=== PATIENT | female | born 1975 | race Caucasian/White ===

== ENCOUNTER → 2018-04-05 14:27 | Outpatient (POV) | payer BC, MEDICAID, SELFPAY | PROVIDERS: Visit Provider Dermatology | DX: Z00.00 Encounter for general adult medical examination without abnormal findings (principal) ==

== ENCOUNTER → 2018-09-20 10:47 | Outpatient (CLI) | payer BC, MEDICAID, SELFPAY ==
--- NOTE | 2018-09-20 10:51 | US_ITS ---
US transvaginal HISTORY: ITS.REASON: DUB ORDERING PHYSICIAN: Bob Blum MD PATIENT AGE: 43 years Comparison: None FINDINGS: The empty uterus measures 10.5 x 5.6 x 5.6 cm. Endometrial stripe is 1.3 cm. There is blood flow to both ovaries with a few small right ovarian follicles and very small amount of fluid around the right ovary. IMPRESSION: Some prominence of the endometrial stripe could be related to the menstrual cycle. Very small amount of free fluid around the right ovary. No other acute process.
== END ==
PROVIDERS: PCP Internal Medicine; Visit Provider Obstetrics & Gynecology
DX: N93.8 Other specified abnormal uterine and vaginal bleeding (principal)
CPT/HCPCS: 76830

== ENCOUNTER → 2018-10-19 16:14 | Outpatient (CLI) | payer BC, MEDICAID, SELFPAY ==
--- NOTE | 2018-10-19 16:25 | MM_ITS ---
MM Dig screening mamm BI w/CAD CAD Screening COMPARISON: Digital mammograms with CAD 10/14/2016 INDICATION: There is no personal or family history of breast cancer. There has been previous breast reduction surgery bilaterally. TECHNIQUE: Standard CC and MLO images were obtained. R2 CAD reviewed. FINDINGS: Diffuse heterogenic fibroglandular densities are seen in both breasts. Findings are most prominent in the upper outer quadrants. There is a stable somewhat irregular density inner quadrant left breast. There is a benign-appearing calcification right breast. There is no suspicious lesion and there are no suspicious microcalcifications. IMPRESSION: Moderate diffuse breast density with no suspicious lesion seen BI-RADS Category: 2 Benign Finding(s) RECOMMENDED FOLLOW-UP: 1YR - 1 YEAR FOLLOW-UP (A letter has been sent to the patient regarding results of the study.)
== END ==
PROVIDERS: PCP Internal Medicine; Visit Provider Obstetrics & Gynecology
DX: Z12.31 Encounter for screening mammogram for malignant neoplasm of breast (principal)
CPT/HCPCS: 77067

== ENCOUNTER 2020-12-04 18:15 | Emergency (ER) | payer BC, MEDICAID, SELFPAY ==
[2020-12-04 19:52] VITALS: BP 123/84; PULSE 66; RESP 19; TEMP 37; O2SAT 98; BMI 30.7
--- NOTE | 2020-12-04 19:55 | HMH.EDUTC ---
[facility] Disposition Clinical Impression: Muscle spasm Disposition: Home, Self-Care Condition on Discharge: Good Instructions: DI for Muscle Spasm Additional Instructions: *Ibuprofen jennifer 6 hours with meal as needed for pain/inflammation *Remember you had a Toradol shot in the clinic today, which is similar to Motrin *Not additional anti-inflammatory like motrin, aleve, advil with the above amount of ibuprofen. You can still take Tylenol every 4 hours as needed if you need something else for pain *Ice 20 minutes every 2 hours for the first 48 hours after the initial injury followed by moist heat every 20 minutes 3-4 times a day to affected area *Muscle relaxer every 8 hours as needed for muscle spasms but remember, it WILL cause drowsiness You cannot take it and drive, operate machinery or care for small children. *Keep this area active, no movement leads to more stiffness, However take it easy and avoid heavy lifting pushing or pulling *Follow up with you family doctor if no improvement for further treatment Prescriptions: Etodolac 200 mg PO Q8HP PRN #15 cap PRN Reason: Moderate Pain Transmission Status: Pending to [facility] #[id number] methocarbamoL [Methocarbamol 500mg Tablet] 500 mg PO BID PRN #12 tab PRN Reason: Muscle Spasm Transmission Status: Pending to [facility] #[id number] Referrals: Ras Bowen [Primary Care Provider] - As needed Medical Decision Making - Carter Inquiry Pt receiving controlled substance: No Carter was queried for this patient: No Vital Signs: 12/04/20 19:52 Temperature 98.6 F Temperature Source Oral Pulse Rate [Right] 66 Respiratory Rate 19 Blood Pressure [Right Arm] 123/84 Blood Pressure Mean [Right Arm] 97 02 Sat by Pulse Oximetry 98 Orders (Tests/Meds): ED MEDICATIONS Discontinued Medications Generic Name Dose Route Start Last Admin Trade Name Freq PRN Reason Stop Dose Admin Ketorolac Tromethamine 60 mg 12/04/20 20:05 12/04/20 20:15 Ketorolac 60mg/2ml Vial IM 12/04/20 20:06 60 mg ONCE ONE Administration Methylprednisolone Sodium Succinate 125 mg 12/04/20 20:05 12/04/20 20:15 Methylprednisolone Sod Succ 125mg Vial IM 12/04/20 20:06 125 mg ONCE ONE Administration Medical Decision Narrative: Medication discussed with pharmacy Discussed with patient about neck and shoulder pain sending to ED to [facility] cardiac Patient states that she is not having CP and declined transfer Patient states that she is not having any chest pain and pain in neck and shoulder area is exacerbated with movement and similar to what she has had in the past and didnt start until she was working in the yard and thinks she over did it Patient advised she would return if no improvement or any worsening of symptoms patient educated on risks and still declined Patient reports pain much better after injection and no longer having headache States that she feels like she can move her arm better and muscle spasm not as intense [facility] HPI - General Stated complaint: Pain Left shoulder/neck Time Seen by Provider: 12/04/20 19:55 Description of Symptoms (Recalled from Triage Doc. by RN): PAIN IN NECK WITH NAUSEA & DIZZINESS, HEADACHE X3 DAYS HEENT Symptoms (Recalled from RN notes): No Resp Symptoms (Recalled from RN notes): No Skin Symptoms (Recalled from RN notes): No MS Symptoms (Recalled from RN notes): Yes Functional Status (Recalled from RN notes): WNL - History of Present Illness Provider Complaint: Patient states that she has a history of muscle spasms in her neck and shoulder area States that she was working out in the yard the other day and she thinks she may have over done it State that she has been having muscles spasms in the left side of her neck and feels like it is pulling back of her shoulder blade area State that it is making her have a headache and feel nauseous at times - Related Data Home Medications Medication Instructions Recorded Confirmed acyc
[2020-12-04 20:51] VITALS: BP 123/84; PULSE 66; RESP 19; TEMP 37
== END 2020-12-04 20:52 | disposition home or self-care (01) ==
PROVIDERS: Emergency Provider Nurse Practitioner; PCP Internal Medicine
DX: M62.838 Other muscle spasm (principal); M54.2 Cervicalgia; R51.9 Headache, unspecified; F33.1 Major depressive disorder, recurrent, moderate; E11.9 Type 2 diabetes mellitus without complications
CPT/HCPCS: 96372; 99202; G0463

== ENCOUNTER → 2021-04-04 12:07 | Outpatient (CLI) | payer BC, MEDICAID, SELFPAY ==
[2021-04-04 12:39] LABS: Basophils % 0.7 % (0.1-2.0); Eosinophils # 0.1 K/mm3 (0.0-0.4); Eosinophils % 0.9 % (0.1-12.0); Hematocrit 45.2 % (37.0-47.0); Hemoglobin 14.6 g/dL (12.2-16.2); Lymphocytes # 1.5 K/mm3 (0.7-4.5); Lymphocytes % 27.7 % (10-50); Mean Corpuscular HGB Conc 32.3 g/dL (31.8-35.4); Mean Corpuscular Hemoglobin 29.7 pg (27.0-31.2); Mean Platelet Volume 8.7 fl (7.4-10.4); Monocytes # 0.3 K/mm3 (0.1-1.0); Monocytes % 5.3 % (1.7-9.3); Neutrophils # 3.5 K/mm3 (1.8-7.8); Neutrophils % 65.5 % (37.0-80.0); Platelet Count 295 K/mm3 (142-424); Red Blood Count 4.91 M/mm3 (4.20-5.40); Red Cell Distribution Width 13.4 % (11.5-17.5); White Blood Count 5.3 K/mm3 (4.8-10.8)
[2021-04-04 13:42] LABS: Alanine Aminotransferase 20 U/L (12-78); Albumin Level 4.7 g/dl (3.5-5.0); Albumin/Globulin Ratio 1.6 (1.1-1.8); Alkaline Phosphatase 88 U/L (38-126); Anion Gap 13.2 mEq/L (5-15); Aspartate Amino Transferase 22 U/L (14-36); Bilirubin,Total 0.4 mg/dl (0.2-1.3); Blood Urea Nitrogen 21 mg/dl (7-17); Calcium 10.3 mg/dl (8.4-10.2); Carbon Dioxide 24 mmol/L (22.0-30.0); Chloride 105 mmol/L (98-107); Cholesterol 206 mg/dl (140-200); Estimated Glomerular Filt Rate 78 ml/min (>60); GFR (African American) 94 ML/MIN (>60); Globulin 2.9 g/dL (1.3-3.2); Glucose 98 mg/dl (74-100); HDL Cholesterol 51 mg/dl (40-60); Potassium 4.2 mmoL/L (3.5-5.1); Sodium 138 mmol/L (136-145); Total Protein,Serum 7.6 g/dl (6.3-8.2); Triglycerides 58 mg/dl (30-150); VLDL Cholesterol 12 mg/dL (0-40)
[2021-04-04 13:53] LABS: Direct LDL Cholesterol 135.32 mg/dL (100-129)
[2021-04-04 14:36] LABS: Hemoglobin A1C 5.3 % (4.0-6.0)
== END ==
PROVIDERS: PCP Internal Medicine; Visit Provider Internal Medicine
DX: I10 Essential (primary) hypertension (principal); E78.5 Hyperlipidemia, unspecified; D64.9 Anemia, unspecified; Z83.3 Family history of diabetes mellitus
CPT/HCPCS: 36415; 80053; 80061; 83036; 85025

== ENCOUNTER → 2021-04-11 17:07 | Outpatient (CLI) | payer BC, MEDICAID, SELFPAY | PROVIDERS: Visit Provider Nurse Practitioner | DX: Z20.822 Contact with and (suspected) exposure to COVID-19 (principal) | CPT/HCPCS: C9803; U0003; U0005 ==

== ENCOUNTER 2022-01-04 20:14 | Emergency (ER) | payer BC, MEDICAID, SELFPAY ==
[2022-01-04] VITALS (7 sets, daily range): BP systolic 156–182; BP diastolic 100–113; PULSE 76–98; RESP 22; TEMP 36.4; O2SAT 96–100; BMI 28.1
--- NOTE | 2022-01-04 20:32 | XR_ITS ---
PROCEDURE INFORMATION: Exam: XR Chest Exam date and time: 01/04/2022 8:53 PM Age: 46 years old Clinical indication: Injury or trauma; Fall; Blunt trauma (contusions or hematomas) TECHNIQUE: Imaging protocol: Radiologic exam of the chest. Views: 4 or more views. COMPARISON: CT CERVICAL SPINE WO CON 01/04/2022 8:49 PM FINDINGS: Lungs: Unremarkable. No consolidation. Pleural spaces: Unremarkable. No pleural effusion. No pneumothorax. Heart/Mediastinum: Unremarkable. No cardiomegaly. Bones/joints: Unremarkable. IMPRESSION: No acute findings.
--- NOTE | 2022-01-04 20:32 | XR_ITS ---
PROCEDURE INFORMATION: Exam: XR Pelvis Exam date and time: 01/04/2022 8:52 PM Age: 46 years old Clinical indication: Injury or trauma; Fall; Blunt trauma (contusions or hematomas); Bilateral; Pelvic region TECHNIQUE: Imaging protocol: Radiologic exam of the pelvis. Views: 1 or 2 view. COMPARISON: ABDPELW/O CT ABD PELVIS W/O CONTRAST 08/03/2016 12:29 PM FINDINGS: Bones/joints: Unremarkable. No acute fracture. Soft tissues: Unremarkable. IMPRESSION: No acute findings.
--- NOTE | 2022-01-04 20:32 | CT_ITS ---
PROCEDURE INFORMATION: Exam: CT Cervical Spine Without Contrast Exam date and time: 01/04/2022 8:49 PM Age: 46 years old Clinical indication: Injury or trauma; Fall; Blunt trauma; Additional info: Fall, hit posterior head TECHNIQUE: Imaging protocol: Computed tomography of the cervical spine without contrast. Radiation optimization: All CT scans at this facility use at least one of these dose optimization techniques: automated exposure control; mA and/or kV adjustment per patient size (includes targeted exams where dose is matched to clinical indication); or iterative reconstruction. 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 Straightening of the curvature of the cervical spine is likely positional. Moderate left neural foraminal stenosis at C3-C4. Lungs: Lung apices are normal. Mediastinal space: Stigmata of old granulomatous disease. Soft tissues: Unremarkable. IMPRESSION: No acute fracture or malalignment of the cervical spine.
--- NOTE | 2022-01-04 20:32 | CT_ITS ---
PROCEDURE INFORMATION: Exam: CT Head Without Contrast Exam date and time: 01/04/2022 8:47 PM Age: 46 years old Clinical indication: Injury or trauma; Fall; Additional info: Fall, hit posterior head TECHNIQUE: Imaging protocol: Computed tomography of the head without contrast. Radiation optimization: All CT scans at this facility use at least one of these dose optimization techniques: automated exposure control; mA and/or kV adjustment per patient size (includes targeted exams where dose is matched to clinical indication); or iterative reconstruction. COMPARISON: CR XR CERVICAL SPINE 3V 11/03/2018 4:19 PM FINDINGS: Brain: There is a probable small amount of extra-axial blood overlying the right frontal and temporal convexity best seen on coronal and sagittal images. Possible right frontal lobe contusion on image 29 series 3. Cerebral ventricles: No ventriculomegaly. Paranasal sinuses: Visualized sinuses are unremarkable. No fluid levels. Mastoid air cells: Visualized mastoid air cells are well aerated. Bones/joints: Nondisplaced left-sided occipital bone fracture nearly extending to the left side of the foramen magnum. Soft tissues: Posterior scalp hematoma. IMPRESSION: 1. There is a probable small amount of extra-axial blood overlying the right frontal and temporal convexity best seen on coronal and sagittal images. Possible right frontal lobe contusion on image 29 series 3. This appearance could be artifact, however, given the presence of a posterior skull fracture, 4 hour follow-up head CT is recommended. 2. Nondisplaced left-sided occipital bone fracture nearly extending to the left side of the foramen magnum. No underlying extra-axial hematoma.
--- NOTE | 2022-01-04 20:49 | PC.NURSE ---
Pt gone to RAD for Xray and CT scans
--- NOTE | 2022-01-04 20:57 | HMH.EDFALL ---
Discharge Plan Disposition Patient Disposition: Home, Self-Care Chief Complaint: Fall Prescriptions Prescriptions: No Action duloxetine 30 mg capsule,delayed release(DR/EC) 30 mg PO DAILY duloxetine 60 mg capsule,delayed release(DR/EC) PO Label Comments: TAKE 1 CAPSULE BY MOUTH EVERY MORNING FOR FIBROMYALGIA hydrochlorothiazide 25 mg tablet 25 mg PO DAILY Label Comments: TK 1 T PO MORNING losartan 50 mg tablet 50 mg PO DAILY Label Comments: TK 1 T PO QD acyclovir 400 mg tablet 400 mg PO DAILY Label Comments: take 1 tablet by mouth three times a day for 7 days Lo Loestrin Fe 1 mg-10 mcg (24)/10 mcg (2) tablet 1 tab PO DAILY Qty: 140 7RF methocarbamol 500 MG tablet 500 mg PO BID PRN (Reason: Muscle Spasm) Qty: 12 0RF etodolac 200 MG capsule 200 mg PO Q8HP PRN (Reason: Moderate Pain) Qty: 15 0RF Referrals Follow up/Referrals: Ras Bowen MD [Primary Care Provider] - See instructions Clinical Impressions Clinical Impression: Contusion of head, Concussion without loss of consciousness Instructions Patient Instructions: DI for Concussion Discharge ED Provider: Umang Layton Fall HPI General Chief Complaint: Fall Stated Complaint: AO 01/04 FELL HIT HEAD, VOMITTING Time Seen by Provider: 01/04/22 20:57 Mode of Arrival: Family Vehicle Source of Information: Patient, Parent(s) and Medical Record Limitations: No Limitations Description of Symptoms (Recalled from ER Triage Doc. by RN): Pt fell down 4 steps and hit the back of her head on conrete. Brusing, abraision and swelling noted to posterior head. Denies any loc. Pt does c/o nausea and dry heaving. History of Present Illness HPI Narrative: fell down steps and hit back of head no loc but feels confused with nausea - has hx of skull fx as child - no sz complaint: fall Onset (ago): hour(s) Fall from: down stairs (#) Place fall occurred: home Loss of consciousness: none Prolonged down time: no Symptoms prior to fall: none Context: tripped/slipped Location of injury: head Severity: moderate Associated symptoms (after fall): confusion and other (nausea ) Related Data Home Medications Medication Instructions Recorded Confirmed acyclovir 400 mg tablet 400 mg PO DAILY 10/26/19 duloxetine 30 mg capsule,delayed 30 mg PO DAILY 10/26/19 release duloxetine 60 mg capsule,delayed mg PO 10/26/19 release hydrochlorothiazide 25 mg tablet 25 mg PO DAILY 10/26/19 losartan 50 mg tablet 50 mg PO DAILY 10/26/19 Previous Rx's Medication Instructions Recorded norethindrone 1 mg-ethinyl 1 tab PO DAILY #140 tabs 12/05/19 estradiol 10 mcg (24)-iron 10 mcg(2) tablet (Lo Loestrin Fe) etodolac 200 mg capsule 200 mg PO Q8HP PRN Moderate Pain 12/04/20 #15 caps methocarbamol 500 mg tablet 500 mg PO BID PRN Muscle Spasm #12 12/04/20 tabs Allergies Allergy/AdvReac Type Severity Reaction Status Date / Time codeine [CODEINE] Allergy Mild Verified 12/04/20 19:55 latex [LATEX] Allergy Unknown Verified 12/04/20 19:55 PFSH PFSH Social History Smoking Status: Current every day smoker alcohol intake: never substance use type: denies use current occupational status: employed and unemployed Travel in the last 8 weeks: None household members: family housing: house number of children: 3 ROS Obtained: Yes All systems reviewed & no additional complaints except as documented Physical Exam General General appearance: alert and in no apparent distress Head Head exam: normocephalic and other (occipital hematoma ) Eye Eye exam: Present PERRL and EOMI; Absent nystagmus ENT ENT exam: Present normal oropharynx Neck Neck exam: Present full ROM and trachea midline Respiratory Respiratory exam: Present normal lung sounds bilaterally; Absent respiratory distress Cardiovascular Cardiovascular exam: Present regular rate Abdominal Exam Abdominal exam: Present
--- NOTE | 2022-01-04 21:05 | PC.NURSE ---
Pt returned to room from RAD
--- NOTE | 2022-01-04 21:15 | PC.NURSE ---
Dr. Layton @ bedside
--- NOTE | 2022-01-04 21:30 | PC.NURSE ---
Dr. Layton s/w SERAFINAD
--- NOTE | 2022-01-05 00:47 | CT_ITS ---
PROCEDURE INFORMATION: Exam: CT Head Without Contrast Exam date and time: 01/05/2022 1:01 AM Age: 46 years old Clinical indication: Injury or trauma; Fall; Blunt trauma (contusions or hematomas); Without loss of consciousness; Additional info: Repat [address] TECHNIQUE: Imaging protocol: Computed tomography of the head without contrast. Radiation optimization: All CT scans at this facility use at least one of these dose optimization techniques: automated exposure control; mA and/or kV adjustment per patient size (includes targeted exams where dose is matched to clinical indication); or iterative reconstruction. COMPARISON: CT HEAD/BRAIN WO CON 01/04/2022 8:47 PM FINDINGS: Brain: Normal. No hemorrhage. Unremarkable white matter. No mass effect. Cerebral ventricles: No ventriculomegaly. Paranasal sinuses: Visualized sinuses are unremarkable. No fluid levels. Mastoid air cells: Visualized mastoid air cells are well aerated. Bones/joints: Unremarkable. No acute fracture. Soft tissues: Scalp hematoma posteriorly. IMPRESSION: No acute intracranial abnormality.
--- NOTE | 2022-01-05 01:05 | PC.NURSE ---
PATIENT TRANSPORTED VIA STRETCHER TO RADIOLOGY.
[2022-01-05 01:43] VITALS: BP 110/70; PULSE 81; RESP 20; TEMP 36.8; O2SAT 98
== END 2022-01-05 02:21 | disposition home or self-care (01) ==
PROVIDERS: Emergency Provider Emergency Medicine; PCP Internal Medicine
DX: S06.0X0A Concussion without loss of consciousness, initial encounter (principal); W10.9XXA Fall (on) (from) unspecified stairs and steps, initial encounter
CPT/HCPCS: 70450; 71045; 72125; 72170; 99285

== ENCOUNTER → 2022-01-09 15:52 | Outpatient (CLI) | payer BC, MEDICAID, SELFPAY ==
--- NOTE | 2022-01-09 16:01 | CT_ITS ---
FINAL REPORT CLINICAL HISTORY: HEAD TRAUMA, light sensitivity, dizziness COMPARISON: 01/05/2022 FINDINGS: Axial images of the head were obtained without contrast. Coronal reformatted images were also obtained.This study was performed with techniques to keep radiation doses as low as reasonably achievable (ALARA). Individualized dose reduction techniques using automated exposure control or adjustment of mA and/or kV according to the patient's size were employed. There is no evidence of intracranial hemorrhage or mass. The ventricular size is within normal limits. There is no evidence of shift of the midline structures. No abnormal extra axial fluid collection is identified. No skull abnormality is seen on the bone window images. IMPRESSION: No acute intracranial abnormality. Reviewed, Interpreted and Dictated by Deangelo Mcdaniel III, MD Transcribed by Patel Cohen Authenticated and [facility]
== END ==
PROVIDERS: PCP Internal Medicine; Visit Provider Internal Medicine
DX: S09.8XXA Other specified injuries of head, initial encounter (principal); W10.8XXA Fall (on) (from) other stairs and steps, initial encounter
CPT/HCPCS: 70450

== ENCOUNTER 2022-01-21 14:53 | Emergency (ER) | payer BC, MEDICAID, SELFPAY ==
[2022-01-21] VITALS (8 sets, daily range): BP systolic 139–178; BP diastolic 92–123; PULSE 78–100; RESP 14–19; TEMP 36.8; O2SAT 97–99; BMI 27.3
--- NOTE | 2022-01-21 14:47 | ECG_ITS ---
APPROVED REPORT Exam: Resting ECG HR:90 bpm ECG Measurements Heart Rate 90 AXES MA 145 P 45 QRSd 87 QRS 16 QT 354 T 24 QTc 402 Conclusion SINUS RHYTHM NORMAL ECG UNCONFIRMED REPORT Electronically signed by : Brad Tavares MD 01/22/2022 21:08:07
--- NOTE | 2022-01-21 14:55 | CT_ITS ---
FINAL REPORT CLINICAL HISTORY: head injury, pain COMPARISON: January 09, 2022 FINDINGS: Axial images of the head were obtained without contrast. Coronal reformatted images were also obtained.This study was performed with techniques to keep radiation doses as low as reasonably achievable (ALARA). Individualized dose reduction techniques using automated exposure control or adjustment of mA and/or kV according to the patient's size were employed. There is no evidence of intracranial hemorrhage or mass. The ventricular size is within normal limits. There is no evidence of shift of the midline structures. No abnormal extra axial fluid collection is identified. No skull abnormality is seen on the bone window images. IMPRESSION: No acute intracranial abnormality. Reviewed, Interpreted and Dictated by Deangelo Mcdaniel III, MD Transcribed by Patel Cohen Authenticated and [facility]
--- NOTE | 2022-01-21 14:55 | XR_ITS ---
FINAL REPORT CLINICAL HISTORY: chest pain FINDINGS: The heart size is normal. The mediastinum is within normal limits. There is no acute cardiopulmonary process. There is no pleural effusion. There is no pneumothorax. The bony thorax is intact. IMPRESSION: No acute cardiopulmonary process. Reviewed, Interpreted and Dictated by Deangelo Mcdaniel III, MD Transcribed by Patel Cohen Authenticated and [facility]
--- NOTE | 2022-01-21 14:56 | HMH.EDGENADL ---
Discharge Plan Disposition Patient Disposition: Home, Self-Care Condition: Fair Prescriptions Prescriptions: New ibuprofen 600 mg tablet 600 mg PO TID PRN (Reason: pain) Qty: 20 0RF ondansetron 4 mg tablet,disintegrating 4 mg PO Q6H PRN (Reason: nausea and vomiting) Qty: 10 0RF No Action duloxetine 30 mg capsule,delayed release(DR/EC) 30 mg PO DAILY duloxetine 60 mg capsule,delayed release(DR/EC) PO Label Comments: TAKE 1 CAPSULE BY MOUTH EVERY MORNING FOR FIBROMYALGIA hydrochlorothiazide 25 mg tablet 25 mg PO DAILY Label Comments: TK 1 T PO MORNING losartan 50 mg tablet 50 mg PO DAILY Label Comments: TK 1 T PO QD acyclovir 400 mg tablet 400 mg PO DAILY Label Comments: take 1 tablet by mouth three times a day for 7 days Lo Loestrin Fe 1 mg-10 mcg (24)/10 mcg (2) tablet 1 tab PO DAILY Qty: 140 7RF methocarbamol 500 MG tablet 500 mg PO BID PRN (Reason: Muscle Spasm) Qty: 12 0RF etodolac 200 MG capsule 200 mg PO Q8HP PRN (Reason: Moderate Pain) Qty: 15 0RF Activity Restrictions/Add. Instructions Additional Instructions/Restrictions: You have been evaluated for chest pain, elevated blood pressure, headache. This is likely due to postconcussive syndrome. Please continue to monitor your symptoms closely. Continue taking blood pressure medication. Take ibuprofen as needed. Follow-up with your primary care doctor in 1 to 2 days for symptom recheck. Return to the emergency department at once for any new or worsening symptoms, headache, vision changes, dizziness, chest pain, difficulty breathing or any other concern Clinical Impressions Clinical Impression: Post concussion syndrome, Headache, tension-type, Elevated blood pressure reading Instructions Patient Instructions: DI for Concussion, DI for Postconcussion Syndrome Discharge ED Provider: Ramandeep Price Adult HPI General Chief complaint: Chest Pain Stated complaint: CHEST PAIN Time Seen by Provider: 01/21/22 14:55 History of Present Illness HPI narrative: 46-year-old female presenting to the emergency department with chest pain. Pain started 2 nights ago before bedtime. She had a tight, aching pain that was located in the front of her chest. No radiation. She has had it intermittently since then. No particular association with activity or exertion. No nausea, diaphoresis, shortness of breath. She has never had pain like this before. She has a headache that is constant and throbbing, worse on the right side. She sustained a concussion 3 weeks ago after falling off of her deck. She was evaluated in the ER where she had a head CT. No vision changes. No nausea, vomiting, neck pain. Her blood pressure has been elevated around 150 systolic. She is taking her blood pressure medicine as prescribed. Related Data Home Medications Medication Instructions Recorded Confirmed acyclovir 400 mg tablet 400 mg PO DAILY 10/26/19 duloxetine 30 mg capsule,delayed 30 mg PO DAILY 10/26/19 release duloxetine 60 mg capsule,delayed mg PO 10/26/19 release hydrochlorothiazide 25 mg tablet 25 mg PO DAILY 10/26/19 losartan 50 mg tablet 50 mg PO DAILY 10/26/19 Previous Rx's Medication Instructions Recorded norethindrone 1 mg-ethinyl 1 tab PO DAILY #140 tabs 12/05/19 estradiol 10 mcg (24)-iron 10 mcg(2) tablet (Lo Loestrin Fe) etodolac 200 mg capsule 200 mg PO Q8HP PRN Moderate Pain 12/04/20 #15 caps methocarbamol 500 mg tablet 500 mg PO BID PRN Muscle Spasm #12 12/04/20 tabs ibuprofen 600 mg tablet 600 mg PO TID PRN pain #20 tabs 01/21/22 ondansetron 4 mg disintegrating 4 mg PO Q6H PRN nausea and 01/21/22 tablet vomiting #10 tabs Allergies Allergy/AdvReac Type Severity Reaction Status Date / Time codeine [CODEINE] Allergy Mild Verified 12/04/20 19:55 latex [LATEX] Allergy Unknown Verified 12/04/20 19:55 [facility] Social History Smoking St
--- NOTE | 2022-01-21 15:00 | PC.NURSE ---
1450 ED MD AT BEDSIDE
[2022-01-21 15:05] LABS: Basophils # 0.1 K/mm3 (0-0.2); Basophils % 1.4 % (0.1-2.0); Eosinophils # 0.1 K/mm3 (0.0-0.4); Eosinophils % 2.5 % (0.1-12.0); Hematocrit 41.8 % (37.0-47.0); Hemoglobin 14.2 g/dL (12.2-16.2); Lymphocytes # 1.9 K/mm3 (0.7-4.5); Lymphocytes % 34.2 % (10-50); Mean Corpuscular Hemoglobin 30.2 pg (27.0-31.2); Mean Corpuscular Volume 88.7 fl (81-99); Monocytes # 0.3 K/mm3 (0.1-1.0); Neutrophils % 55.8 % (37.0-80.0); Platelet Count 288 K/mm3 (142-424); Red Blood Count 4.71 M/mm3 (4.20-5.40); Red Cell Distribution Width 13.8 % (11.5-17.5); White Blood Count 5.4 K/mm3 (4.8-10.8)
--- NOTE | 2022-01-21 15:05 | PC.NURSE ---
PT TO CT
[2022-01-21 15:28] LABS: Chloride 104 mmol/L (98-107); Potassium 3.6 mmoL/L (3.5-5.1); Sodium 140 mmol/L (136-145)
[2022-01-21 15:31] LABS: Alanine Aminotransferase 54 U/L (12-78); Albumin Level 4.4 g/dl (3.5-5.0); Albumin/Globulin Ratio 1.4 (1.1-1.8); Alkaline Phosphatase 123 U/L (38-126); Anion Gap 11.6 mEq/L (5-15); Aspartate Amino Transferase 52 U/L (14-36); Bilirubin,Total 0.5 mg/dl (0.2-1.3); Blood Urea Nitrogen 15 mg/dl (7-17); Carbon Dioxide 28 mmol/L (22.0-30.0); Creatinine Clearance Estimated 133 mL/min (50-200); Estimated Glomerular Filt Rate 90 ml/min (>60); GFR (African American) 109 ML/MIN (>60); Globulin 3.2 g/dL (1.3-3.2); Total Protein,Serum 7.6 g/dl (6.3-8.2)
[2022-01-21 15:32] LABS: Calcium 9.4 mg/dl (8.4-10.2); Glucose 96 mg/dl (74-100)
[2022-01-21 15:53] LABS: Troponin I < 0.01 ng/ml (0.00-0.034)
--- NOTE | 2022-01-21 16:18 | PC.NURSE ---
ROUNDED ON PT AT THIS TIME, PT SLEEPING UPON ENTERING ROOM, AWAKENS EASILY, REPORTS FEELING BETTER. NO NEEDS AT THIS TIME, UPDATED ON POC
[2022-01-21 18:40] LABS: Troponin I < 0.01 ng/ml (0.00-0.034)
== END 2022-01-21 18:45 | disposition home or self-care (01) ==
PROVIDERS: Emergency Provider Emergency Medicine; PCP Emergency Medicine
DX: F07.81 Postconcussional syndrome (principal); G44.209 Tension-type headache, unspecified, not intractable; R03.0 Elevated blood-pressure reading, without diagnosis of hypertension; Z79.899 Other long term (current) drug therapy; Z88.6 Allergy status to analgesic agent; Z91.040 Latex allergy status
CPT/HCPCS: 70450; 71045; 80053; 84484; 85025; 93005; 96374; 99285

== ENCOUNTER → 2022-05-13 10:47 | Outpatient (CLI) | payer BC, MEDICAID, SELFPAY ==
[2022-05-13 10:56] LABS: MANUAL DIFFERENTIAL MANUAL DIFFERENTIAL (MANUAL DIFF); Microscopic, Urine URINE MICROSCOPIC (MICROSCOPIC)
[2022-05-13 11:49] LABS: Basophils # 0.1 K/mm3 (0-0.2); Basophils % 0.8 % (0.1-2.0); Eosinophils # 0.1 K/mm3 (0.0-0.4); Eosinophils % 1.3 % (0.1-12.0); Hematocrit 37.3 % (37.0-47.0); Hemoglobin 12.6 g/dL (12.2-16.2); Lymphocytes # 1.6 K/mm3 (0.7-4.5); Lymphocytes % 27.5 % (10-50); Mean Corpuscular HGB Conc 33.9 g/dL (31.8-35.4); Mean Corpuscular Hemoglobin 30.2 pg (27.0-31.2); Monocytes # 0.3 K/mm3 (0.1-1.0); Monocytes % 4.7 % (1.7-9.3); Neutrophils # 3.9 K/mm3 (1.8-7.8); Neutrophils % 65.6 % (37.0-80.0); Platelet Count 272 K/mm3 (142-424); Red Blood Count 4.19 M/mm3 (4.20-5.40); Red Cell Distribution Width 13.3 % (11.5-17.5)
[2022-05-13 11:50] LABS: Appearance,Urine CLEAR (Clear); Bilirubin,Urine Negative (Negative); Blood, Urine 1+ (Negative); Color,Urine YELLOW (Yellow); Glucose,Urine (UA) Negative (Negative); Ketones,Urine Negative (Negative); Leukocyte Esterase,Urine Negative (Negative); Nitrate,Urine Negative (Negative); Protein,Urine Negative (Negative); Specific Gravity, Urine 1.015 (1.005-1.030); Urobilinogen,Urine 0.2 EU/dl (0.2)
[2022-05-13 12:16] LABS: Bacteria,Urine Trace /lpf; RBC,Urine Occasional #/hpf (0-3); WBC,Urine Occasional #/hpf (0-3)
[2022-05-13 12:48] LABS: Chloride 108 mmol/L (98-107)
[2022-05-13 12:49] LABS: Potassium 3.4 mmoL/L (3.5-5.1); Sodium 141 mmol/L (136-145)
[2022-05-13 12:51] LABS: Alanine Aminotransferase 20 U/L (12-78); Amylase 44 U/L (30-110); Anion Gap 10.4 mEq/L (5-15); Aspartate Amino Transferase 28 U/L (14-36); Blood Urea Nitrogen 13 mg/dl (7-17); Carbon Dioxide 26 mmol/L (22.0-30.0); Estimated Glomerular Filt Rate 90 ml/min (>60); GFR (African American) 109 ML/MIN (>60)
[2022-05-13 12:52] LABS: Albumin Level 4.1 g/dl (3.5-5.0); Albumin/Globulin Ratio 1.4 (1.1-1.8); Alkaline Phosphatase 74 U/L (38-126); Bilirubin,Total 0.5 mg/dl (0.2-1.3); Calcium 9.6 mg/dl (8.4-10.2); Chol/HDL Ratio 4.5 (1-3.5); Cholesterol 201 mg/dl (140-200); Glucose 96 mg/dl (74-100); HDL Cholesterol 45 mg/dl (40-60); Lipase 102 U/L (23-300); Total Protein,Serum 7.1 g/dl (6.3-8.2); Triglycerides 98 mg/dl (30-150); VLDL Cholesterol 20 mg/dL (0-40)
[2022-05-13 13:03] LABS: Direct LDL Cholesterol 126.64 mg/dL (100-129)
[2022-05-13 13:10] LABS: Lymphocytes % 33 % (10-50); Monocytes % 4 % (2-9); Neutrophils % 63 % (42-76); Platelet Estimate Normal; RBC Morphology Normal; Total Cells Counted 100
[2022-05-13 13:23] LABS: Thyroid Stimulating Hormone 2.18 uIU/mL (0.465-4.68)
--- NOTE | 2022-05-13 13:37 | US_ITS ---
FINAL REPORT TECHNIQUE: Sonographic images of the right upper quadrant were obtained. CLINICAL HISTORY: abdominal Pain FINDINGS: Within the liver is an area of increased echogenicity near the ronel, favor focal fatty change, lesion is not entirely excluded. The gallbladder is well filled. There are no gallstones. There is no pericholecystic fluid collection or gallbladder wall thickening. The common duct measures 2 mm which is within normal limits. The pancreatic tail is partially obscured by bowel gas. Otherwise, it has a normal appearance. The right kidney measures 10.9 cm in [id number] length. There is no hydronephrosis, mass, or stone. There is no right upper quadrant ascites. IMPRESSION: Focal fatty infiltration versus very small hyperechoic lesion. Consider CT using liver protocol. Reviewed, Interpreted and Dictated by Elaine Maria MD Transcribed by Sammi Jo Authenticated and [facility]
== END ==
PROVIDERS: PCP Family Medicine; Visit Provider Family Medicine
DX: R10.9 Unspecified abdominal pain (principal); R59.1 Generalized enlarged lymph nodes; E53.8 Deficiency of other specified B group vitamins; E55.9 Vitamin D deficiency, unspecified; E66.3 Overweight; Z68.29 Body mass index [BMI] 29.0-29.9, adult
CPT/HCPCS: 36415; 76705; 80053; 80061; 81001; 82150; 83690; 84443; 85007; 85014; 85018; 85048; 85049

== ENCOUNTER → 2022-10-27 17:00 | Outpatient (CLI) | payer BC, MEDICAID, SELFPAY ==
[2022-10-27 20:05] LABS: Anion Gap 13.7 mEq/L (5-15); Blood Urea Nitrogen 22 mg/dl (7-17); Calcium 10.1 mg/dl (8.4-10.2); Carbon Dioxide 26 mmol/L (22.0-30.0); Chloride 103 mmol/L (98-107); Estimated Glomerular Filt Rate 77 ml/min (>60); GFR (African American) 93 ML/MIN (>60); Glucose 76 mg/dl (74-100); Potassium 3.7 mmoL/L (3.5-5.1); Sodium 139 mmol/L (136-145)
== END ==
PROVIDERS: PCP Internal Medicine; Visit Provider Internal Medicine
DX: I10 Essential (primary) hypertension (principal)
CPT/HCPCS: 80048

== ENCOUNTER 2022-11-18 14:39 | Outpatient (RCR) | payer BC, MEDICAID, SELFPAY | END 2022-11-18 14:45 | disposition home or self-care (01) | LOC: PT 14:39 | PROVIDERS: PCP Internal Medicine; Visit Provider Internal Medicine | DX: H81.10 Benign paroxysmal vertigo, unspecified ear (principal) | CPT/HCPCS: 97110; 97163 ==

== ENCOUNTER → 2022-12-08 08:02 | Outpatient (CLI) | payer BC, MEDICAID, SELFPAY ==
--- NOTE | 2022-12-08 08:03 | MM_ITS ---
PROCEDURE INFORMATION: Exam: MG Bilateral Screening 3D Mammography Exam date and time: 12/08/2022 7:49 AM Age: 47 years old Clinical indication: Screening mammogram. No personal or family history of breast cancer TECHNIQUE: Imaging protocol: Bilateral Screening tomosynthesis and 2D mammography including computer-aided detection (CAD) when performed. COMPARISON: 1. MG DIG MAMM-SCREEN MIKA 10/19/2018 4:36 PM 2. MG DMDXUR DIG MAMM-DX UNI-RT W/CAD 01/27/2017 11:18 AM 3. MG DMSB DIG MAMM-SCREEN MIKA W/CAD 10/14/2016 9:00 AM 4. BR US BREAST-RT COMPLETE W/AXILLA 01/27/2017 12:11 PM FINDINGS: MAMMOGRAPHY: Breast composition: The breast is heterogeneously dense, which may obscure small masses. Mass: None. Architectural distortion: No new or suspicious architectural distortion. Calcifications: No new or suspicious calcifications are present Asymmetric density: No new or suspicious asymmetric density is present Skin thickening: None. Axillary adenopathy: None. Changes consistent with bilateral reduction mammoplasty are present. IMPRESSION: No mammographic evidence of malignancy. Recommend annual screening mammography unless otherwise clinically indicated. ASSESSMENT: BI-RADS category 2: Benign
== END ==
PROVIDERS: PCP Internal Medicine; Visit Provider Obstetrics & Gynecology
DX: Z12.31 Encounter for screening mammogram for malignant neoplasm of breast (principal)
CPT/HCPCS: 77063; 77067

== ENCOUNTER → 2023-01-07 14:14 | Outpatient (CLI) | payer BC, SELFPAY ==
--- NOTE | 2023-01-07 14:14 | CT_ITS ---
FINAL REPORT CLINICAL HISTORY: Previous head trauma, concussions, Vertigo COMPARISON: 01/21/2022 FINDINGS: Axial images of the head were obtained without contrast. Coronal and sagittal reformatted images were also obtained.This study was performed with techniques to keep radiation doses as low as reasonably achievable (ALARA). Individualized dose reduction techniques using automated exposure control or adjustment of mA and/or kV according to the patient's size were employed. There is no evidence of intracranial hemorrhage or mass. The ventricular size is within normal limits. There is no evidence of shift of the midline structures. No abnormal extra axial fluid collection is identified. No skull abnormality is seen on the bone window images. IMPRESSION: No acute intracranial abnormality. Reviewed, Interpreted and Dictated by Deangelo Mcdaniel III, MD Transcribed by Jenni Barraza Authenticated and . [facility]
== END ==
PROVIDERS: PCP Internal Medicine; Visit Provider Nurse Practitioner
DX: R42 Dizziness and giddiness (principal)
CPT/HCPCS: 70450

== ENCOUNTER → 2023-01-07 15:32 | Outpatient (POV) | payer BC, SELFPAY | PROVIDERS: Visit Provider Specialist/Technologist | DX: Z00.00 Encounter for general adult medical examination without abnormal findings (principal) ==

== ENCOUNTER → 2023-02-26 14:58 | Outpatient (CLI) | payer BC, SELFPAY ==
--- NOTE | 2023-02-26 14:59 | CA_ITS ---
FINAL REPORT TECHNIQUE: Color Doppler, duplex Doppler and green scale sonography of the bilateral neck arterial vasculature was performed. Velocities were measured in the carotid arteries. Stenosis evaluation based on the validated velocity criteria. CLINICAL HISTORY: dizziness, vertigo, hx of head trauma as a child FINDINGS: The peak systolic velocity of the right common carotid artery is 81 cm/s. The peak systolic velocity of the right internal carotid artery is 75 cm/s and end diastolic velocity 39 cm/s. The ICA/CCA ratio is 1.4. A minimal amount of plaque is present. The right external carotid artery is patent. The right vertebral artery is patent with antegrade flow. The peak systolic velocity of the left common carotid artery is 102 cm/s. The peak systolic velocity of the left internal carotid artery is 73 cm/s and end diastolic velocity 40 cm/s. The ICA/CCA ratio is 1.3. A minimal amount of plaque is present. The left external carotid artery is patent.The left vertebral artery is patent with antegrade flow. IMPRESSION: Less than 50% bilateral carotid stenoses. Bilateral patent vertebral arteries with antegrade flow. If indicated, CTA or MRA could further evaluate. Reviewed, Interpreted and Dictated by Dany Novak MD Transcribed by Sammi Jo Authenticated and [facility]
--- NOTE | 2023-02-26 15:41 | MR_ITS ---
FINAL REPORT CLINICAL HISTORY: eval post circulation FINDINGS: Multiple projection images of the brain arterial vasculature were obtained without contrast. raw data images were also reviewed. The basilar artery is patent. The vertebral arteries appear codominant. There is normal intracranial branching pattern. The posterior cerebral arteries appear symmetric. IMPRESSION: No significant abnormality seen. Reviewed, Interpreted and Dictated by Dany Novka MD Transcribed by Sammi Jo Authenticated and [facility]
== END ==
PROVIDERS: PCP Internal Medicine; Visit Provider Nurse Practitioner Family
DX: R42 Dizziness and giddiness (principal); M54.2 Cervicalgia; H91.90 Unspecified hearing loss, unspecified ear; H93.19 Tinnitus, unspecified ear; R29.2 Abnormal reflex; Z87.828 Personal history of other (healed) physical injury and trauma
CPT/HCPCS: 70544; 93880

== ENCOUNTER → 2023-03-25 10:25 | Outpatient (CLI) | payer BC, SELFPAY ==
--- NOTE | 2023-03-25 10:26 | MR_ITS ---
FINAL REPORT CLINICAL HISTORY: Previous head trauma, vertigo COMPARISON: CT head dated 01/07/2023, MRA brain dated 02/26/2023 FINDINGS: Multiplanar MR imaging of the brain was performed without and with contrast. Evaluation is overall degraded by patient motion. There is no evidence of intracranial hemorrhage or mass. No abnormal extra-axial fluid collection is seen. The ventricular size is within normal limits. There is no evidence of shift of the midline structures. The posterior fossa and brainstem have an unremarkable appearance. No area of abnormal restricted diffusion is identified. No abnormal contrast enhancement is seen. Normal major vessel vascular flow voids are noted. IMPRESSION: No acute intracranial abnormality identified. Reviewed, Interpreted and Dictated by Dany Novak MD Transcribed by Griselda Fernandez Authenticated and [facility]
[2023-03-25] MEDS: GADOTERIDOL INJ 17ML SYRINGE 14 ML IV (12:40)
== END ==
LOC: RAD 10:26
PROVIDERS: PCP Internal Medicine; Visit Provider Nurse Practitioner Family
DX: H91.90 Unspecified hearing loss, unspecified ear (principal); H93.19 Tinnitus, unspecified ear; M54.2 Cervicalgia; R29.2 Abnormal reflex; R42 Dizziness and giddiness; Z87.828 Personal history of other (healed) physical injury and trauma
CPT/HCPCS: 70553; A9576

== ENCOUNTER 2023-06-15 15:29 | Outpatient (CLI) | payer BC, SELFPAY ==
[2023-06-15 15:59] LABS: Basophils # 0.1 K/mm3 (0-0.2); Basophils % 1.3 % (0.1-2.0); Eosinophils # 0.1 K/mm3 (0.0-0.4); Eosinophils % 1.8 % (0.1-12.0); Hematocrit 40.5 % (37.0-47.0); Hemoglobin 13.4 g/dL (12.2-16.2); Lymphocytes # 1.8 K/mm3 (0.7-4.5); Lymphocytes % 29.2 % (10-50); Mean Corpuscular HGB Conc 33.2 g/dL (31.8-35.4); Mean Corpuscular Hemoglobin 31.2 pg (27.0-31.2); Mean Corpuscular Volume 93.9 fl (81-99); Mean Platelet Volume 8.1 fl (7.4-10.4); Monocytes # 0.3 K/mm3 (0.1-1.0); Monocytes % 4.6 % (1.7-9.3); Neutrophils # 3.9 K/mm3 (1.8-7.8); Neutrophils % 63.1 % (37.0-80.0); Platelet Count 261 K/mm3 (142-424); Red Blood Count 4.31 M/mm3 (4.20-5.40); Red Cell Distribution Width 13.6 % (11.5-17.5); White Blood Count 6.1 K/mm3 (4.8-10.8)
[2023-06-15 17:25] LABS: Chol/HDL Ratio 3.8 (1-3.5); Cholesterol 265 mg/dl (140-200); HDL Cholesterol 69 mg/dl (40-60); Triglycerides 145 mg/dl (30-150); VLDL Cholesterol 29 mg/dL (0-40)
[2023-06-15 17:28] LABS: Chloride 109 mmol/L (98-107); Potassium 3.7 mmoL/L (3.5-5.1); Sodium 140 mmol/L (136-145)
[2023-06-15 17:30] LABS: Blood Urea Nitrogen 19 mg/dl (7-17); Estimated Glomerular Filt Rate 89 ml/min (>60); GFR (African American) 108 ML/MIN (>60)
[2023-06-15 17:31] LABS: Alanine Aminotransferase 29 U/L (12-78); Albumin/Globulin Ratio 1.5 (1.1-1.8); Alkaline Phosphatase 109 U/L (38-126); Anion Gap 6.7 mEq/L (5-15); Aspartate Amino Transferase 32 U/L (14-36); Bilirubin,Total 0.2 mg/dl (0.2-1.3); Calcium 9.6 mg/dl (8.4-10.2); Carbon Dioxide 28 mmol/L (22.0-30.0); Globulin 2.6 g/dL (1.3-3.2); Glucose 75 mg/dl (74-100); Total Protein,Serum 6.6 g/dl (6.3-8.2)
[2023-06-15 17:36] LABS: Direct LDL Cholesterol 125.67 mg/dL (100-129)
[2023-06-15 18:03] LABS: Thyroid Stimulating Hormone 1.63 uIU/mL (0.465-4.68)
[2023-06-15 19:00] LABS: Vitamin B12 823 pg/mL (239-931)
[2023-06-16 08:40] LABS: Triiodothyronine (T3) Free 2.7 pg/mL (2.0-4.4)
== END 2023-06-15 23:59 ==
PROVIDERS: Nurse Practitioner Family; PCP Internal Medicine; Visit Provider Hospitalist
DX: R42 Dizziness and giddiness (principal); R29.2 Abnormal reflex; M54.2 Cervicalgia; H93.19 Tinnitus, unspecified ear; H91.90 Unspecified hearing loss, unspecified ear; Z87.828 Personal history of other (healed) physical injury and trauma
CPT/HCPCS: 36415; 80053; 80061; 82607; 82746; 84443; 84481; 85025

== ENCOUNTER 2023-08-18 16:39 | Outpatient (CLI) | payer BC, SELFPAY ==
[2023-08-18 18:48] LABS: Anion Gap 12.2 mEq/L (5-15); Blood Urea Nitrogen 17 mg/dl (7-17); Calcium 10.1 mg/dl (8.4-10.2); Carbon Dioxide 29 mmol/L (22.0-30.0); Chloride 103 mmol/L (98-107); Estimated Glomerular Filt Rate 67 ml/min (>60); GFR (African American) 81 ML/MIN (>60); Glucose 99 mg/dl (74-100); Potassium 3.2 mmoL/L (3.5-5.1); Sodium 141 mmol/L (136-145)
== END 2023-08-18 23:59 | disposition home or self-care (01) ==
LOC: LAB.DROPOF 16:40
PROVIDERS: PCP Internal Medicine; Visit Provider Internal Medicine
DX: I10 Essential (primary) hypertension (principal)
CPT/HCPCS: 80048

== ENCOUNTER 2024-07-05 14:46 | Outpatient (CLI) | payer BC, SELFPAY ==
[2024-07-05 13:04] LABS: Coronavirus 19, PCR Not Detected (NotDetected); Human Rhinovirus Not Detected (NotDetected); Influenza A, PCR Not Detected (NotDetected); Influenza B, PCR Not Detected (NotDetected); Respiratory Syncytial Virus Not Detected (NotDetected)
--- OUTSIDE RECORDS SUMMARY | 2024-07-06 22:27 | XMS_ITS ---
Author Organization Unknown Medications Medication Instructions Effective Dates (start - stop) Status losartan potassium 100 MG Or al Tablet [id number]:00:00.000+00 :00 - Completed lorazepam 0.5 MG Oral Tablet 05-07-11:00:00.000+00 :00 - Completed hydrochlorothiazide 25 MG Or al Tablet [id number]:00:00.000+00 :00 - Completed ibuprofen 600 MG Oral Tablet 05-08-25:00:00.000+00 :00 - Completed tizanidine 4 MG Oral Tablet 2022:00:00.000+00 :00 - Completed hydrochlorothiazide 25 MG Or al Tablet [id number]:00:00.000+00 :00 - Completed losartan potassium 100 MG Or al Tablet [id number]:00:00.000+00 :00 - Completed - [id number]:00 :00.000+00 :00 - Completed lorazepam 0.5 MG Oral Tablet 05-27-08:00:00.000+00 :00 - Completed {21 (ethinyl estradiol 0.02 MG / levonorgestrel 0.1 MG Oral Tablet) / 7 (inert ingredients 1 MG Oral Tablet) } Pack [] [id number]:00:00.000 +00 :00 - Completed {21 (ethinyl estradiol 0.02 MG / levonorgestrel 0.1 MG Oral Tablet) / 7 (inert ingredients 1 MG Oral Tablet) } Pack [] [id number]:00:00.000 +00 :00 - Completed lorazepam 0.5 MG Oral Tablet 05-27-26:00:00.000+00 :00 - Completed tizanidine 4 MG Oral Tablet 2021:00:00.000+00 :00 - Completed amoxicillin 500 MG Oral Capsule [id number]:00:00.000+00 :00 - Completed lorazepam 0.5 MG Oral Tablet 06-01-12:00:00.000+00 :00 - Completed ondansetron 4 MG Disintegrat ing Oral Tablet [id number]:00:00.000+00 :00 - Completed tizanidine 4 MG Oral Tablet 2021:00:00.000+00 :00 - Completed losartan potassium 100 MG Or al Tablet [id number]:00:00.000+00 :00 - Completed tizanidine 4 MG Oral Tablet 2022:00:00.000+00 :00 - Completed acyclovir 400 MG Oral Tablet 202 05-27-08:00:00.000+00 :00 - Completed acyclovir 400 MG Oral Tablet 202 05-10-04:00:00.000+00 :00 - Completed acyclovir 400 MG Oral Tablet 202 05-30-23:00:00.000+00 :00 - Completed 24 HR bupropion hydrochlorid e 300 MG Extended Release Oral Tablet [id number]:00:00.000+0 0 :00 - Completed acyclovir 400 MG Oral Tablet 05-28-05:00:00.000+00 :00 - Completed acyclovir 400 MG Oral Tablet 202 05-08-16:00:00.000+00 :00 - Completed acyclovir 400 MG Oral Tablet 202 05-27-26:00:00.000+00 :00 - Completed acyclovir 400 MG Oral Tablet 06-01-12:00:00.000+00 :00 - Completed 24 HR bupropion hydrochlorid e 150 MG Extended Release Oral Tablet [id number]:00:00.000+0 0 :00 - Completed 24 HR bupropion hydrochlorid e 300 MG Extended Release Oral Tablet [id number]:00:00.000+0 0 :00 - Completed 24 HR bupropion hydrochlorid e 300 MG Extended Release Oral Tablet [id number]:00:00.000+0 0 :00 - Completed - [id number]:00 :00.000+00 :00 - Completed 24 HR bupropion hydrochlorid e 300 MG Extended Release Oral Tablet [id number]:00:00.000+0 0 :00 - Completed 24 HR bupropion hydrochlorid e 150 MG Extended Release Oral Tablet [id number]:00:00.000+0 0 :00 - Completed 24 HR bupropion hydrochlorid e 300 MG Extended Release Oral Tablet [id number]:00:00.000+0 0 :00 - Completed 24 HR bupropion hydrochlorid e 300 MG Extended Release Oral Tablet [id number]:00:00.000+0 0 :00 - Completed hydrochlorothiazide 25 MG Or al Tablet [id number]:00:00.000+00 :00 - Completed - 4033-56-10Y44:00 :00.000+00 :00 - Completed - [id number]:00 :00.000+00 :00 - Completed hydrochlorothiazide 25 MG Or al Tablet [id number]:00:00.000+00 :00 - Completed - 2420-37-17Z80:00 :00.000+00 :00 - Completed - [id number]:00 :00.000+00 :00 - Completed - [id number]:00 :00.000+00 :00 - Completed hydrochlorothiazide 25 MG Or al Tablet [id number]:00:00.000+00 :00 - Completed {6 (azithromycin 250 MG Oral Tablet) } Pack [id number]:00:00.000+00 :00 - Completed amphetamine aspartate 7.5 MG / amphetamine sulfate 7.5 MG / dextroamphetamine saccharate 7.5 MG / dextroamphetamine sulfate 7.5 MG Oral Tablet [id number]:00:00.000+00 :00 - Completed Patient Care team information Name Category Status Period Participants - - Proposed period not known -
== END 2024-07-05 23:59 | disposition home or self-care (01) ==
LOC: LAB.DROPOF 14:46
PROVIDERS: PCP Nurse Practitioner Family; Visit Provider Nurse Practitioner Family
DX: R05.9 Cough, unspecified (principal); R09.81 Nasal congestion
CPT/HCPCS: 87631

== ENCOUNTER 2024-11-28 14:52 | Outpatient (CLI) | payer BC, SELFPAY ==
[2024-11-28 14:36] LABS: Albumin Level 4.1 g/dl (3.5-5.0); Chloride 108 mmol/L (98-107); Potassium 4.0 mmoL/L (3.5-5.1); Sodium 139 mmol/L (136-145)
[2024-11-28 14:38] LABS: Blood Urea Nitrogen 16 mg/dl (7-17); Creatinine,Serum 0.60 mg/dl (0.52-1.04); Estimated Glomerular Filt Rate 106 ml/min (>60); GFR (African American) 129 ML/MIN (>60)
[2024-11-28 14:39] LABS: Alanine Aminotransferase 24 U/L (12-78); Albumin/Globulin Ratio 1.5 (1.1-1.8); Alkaline Phosphatase 102 U/L (38-126); Anion Gap 10.0 mEq/L (5-15); Aspartate Amino Transferase 30 U/L (14-36); Bilirubin,Total 0.6 mg/dl (0.2-1.3); Calcium 9.5 mg/dl (8.4-10.2); Carbon Dioxide 25 mmol/L (22.0-30.0); Cholesterol 222 mg/dl (140-200); Globulin 2.7 g/dL (1.3-3.2); Glucose 88 mg/dl (74-100); HDL Cholesterol 56 mg/dl (40-60); Magnesium 1.9 mg/dl (1.6-2.3); Total Protein,Serum 6.8 g/dl (6.3-8.2); Triglycerides 83 mg/dl (30-150)
--- OUTSIDE RECORDS SUMMARY | 2024-11-28 14:55 | XMS_ITS | Clinical Summary ---
Author Organization [facility] Address [address] 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 Active clindamycin (CLEOCIN-T) 1 % LOTN Apply topically 2 (two) times daily. 60 mL 0 4 Active lorazepam (ATIVAN) 0.5 MG TABS TAKE 1/2-1 TABLET BY MOUTH TWICE DAILY NEEDED FOR ANXIETY 30 tablet 0 5 Active norethindrone-ethi nyl estradiol (MICROGESTIN) 1-20 MG-MCG TABSIndications:Or al contraceptive pill surveillance,Vagin al dryness Take 1 tablet by mouth daily. 28 tablet 9 5 Active estradiol (ESTRACE VAGINAL) 0.1 MG/GM CREAIndications:Or al contraceptive pill surveillance,Vagin al dryness Insert 2 g vaginally nightly. Pea size amount at vagina at bedtime 42.5 g 6 5 Active buPROPion (WELLBUTRIN XL) 300 MG TB24 Take 1 tablet by mouth daily. 30 tablet 0 5 Active losartan (COZAAR) 100 MG TABS take 1 tablet by mouth once daily 30 tablet 0 6 Active amlodipine (NORVASC) 5 MG TABS take 1 tablet by mouth once daily 30 tablet 0 6 Active buPROPion (WELLBUTRIN XL) 150 MG TB24 Take 2 tablets by mouth 2 (two) times daily. 60 tablet 0 6 Active Active Problems Problem Noted Date Diagnosed Date Essential hypertension 11/25/2011 Abnormal maternal glucose tolerance, antepartum 12/15/2004 REDDY (generalized anxiety disorder) Overview (01/17/2014): weaned herself off wellbutrin and zoloft Resolved Problems Problem Noted Date Diagnosed Date Resolved Date Polyhydramnios, antepartum complication 04/24/2010 11/25/2011 History of section 01/29/2010 11/25/2011 Overview (01/29/2010): Prior c/s x 2 for macrosomia for repeat High-risk 11/20/2009 11/25/19 12 Immunizations Immunization Administration Dates Next Due FLU VACCINE, 3 YRS AND OLDER 01/27/2012 Influenza Vaccine, Inactivated, Quadrivalent PF 12/18/2013 Influenza Whole, IM 02/26/2011,01/14/2010 Influenza, Inactivated, Quad rivalent Multidose Vial (6 MONTHS AND OLDER) 03/16/2013 Rubella, SQ 12/09/2006 Tdap (Tetanus, Diphtheria & Pertussis) 2 Family History Medical History Relation Name Comments Heart Disease Father afib High BP Father High Cholesterol Father Heart Disease Maternal Grandfather Diabetes Maternal Grandmother Heart Disease Maternal Grandmother Alcohol/Drugs Mother ALCOHOL Diabetes Mother High BP Mother High Cholesterol Other MANY BOTH S IDES OF FAMILY COPD Paternal Grandfather Stroke Paternal Grandmother Relation Name Status Comments Father Alive Maternal Grandfather Maternal Grandmother Mother Alive Other Paternal Grandfather Paternal Grandmother Sister Alive Social History Tobacco Use Types Packs/Day Years Used Date Smoking Tobacco: Never Smokeless Tobacco: Never Alcohol Use Standard Drinks/Week Comments Yes 0 (1 standard drink = 0.6 oz pur e alcohol) rare--wine Comments No Sex and Gender Information Value Date Recorded Sex Assigned at Not on file Legal Sex Female 4:16 PM EDT Gender Identity Not on file Sexual Orientation Not on file 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 file 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 on file 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 Not on file Not on file Last Filed Vital Signs Vital Sign Reading Time Taken Comments Blood Pressure 118/80 10/22/2014 5:20 PM EDT Pulse 82 10/05/2014 12:52 PM EDT Temperature 37.1 C (98.7 F) 02/27/2014 9:56 AM EST Respiratory Rate 20 02/27/2014 9:56 AM EST Oxygen Saturation 98% 02/27/2014 9:56 AM EST Inhaled Oxygen Concentration - - Weight 83.9 kg (185 lb) 10/22/2014 5:20 PM EDT Height 165.1 cm (5' 5 ) 10/22/2014 5:20 PM EDT Body Mass Index 30.79 10/22/2014 5:20 PM EDT Plan of Treatment Health Maintenance Due Date Last Done Comments Mammogram Screening 2015 Pap Screening 08/09/2017 08/09/2014, 06/28, 03/15/2009, Additional history exists Colonoscopy 06/10/2020 DTap,Tdap,and Td (2 - Td or Tdap) 11/24/2021 11/25/2011 Influenza Vaccine (#1) 2024 4, 03/16/2013, 01/27/2012, Additional history exists RSV Vaccine (60+ or ) (1 - 1-dose 75+ series) 06/10/2050 HPV Aged Out No longer eligi ble based on patient's age to complete this topic Meningococcal conjugate valent 4 (MCV4) Aged Out No longer eligible based on patient's age to complete this topic Pneumococcal 0-49 Aged Out No longer eligible based on patient's age to complete this topic RSV Immunization (<20 months) Aged Out No longer eligible based on patient's age to complete this topic Goals Goal Patient Goal Type Associated Problems Recent Progress Patient-Stated? Author Blood Pressure < 140/90 Blood Pressure 118/80(2014 5:20 PM EDT) No Edward Orozco MD LDL, CALCULATED < 100 Result Component 134( 2 10:25 AM EDT) No Edward Orozco MD CREATININE < 1.3 Result Component .77( 4 7:19 PM EDT) Edward Lakhani MD Exercising Regularly Self-ManageEdward Al MD Patient has no barriers to completing goals Self-ManageEdward Al MD Patient increasing knowledge of chronic disease(s) Self-ManageEdward Al MD Tobacco cessation (or no tobacco) Self-ManageEdward Al MD Patient working to improve diet Self-ManageEdward Al MD Patient is monitoring Blood Pressure weekly Self-Edward Mata MD Procedures Procedure Name Priority Date/Time Associated Diagnosis Comments CYTOLOGY DOWEL MAKER Routine 08/09/2014 2:50 PM EDT Routine gynecological examination from Last 3 Months or Most Recently Relevant to Health Maintenance Results * CYTOLOGY DOWEL MAKER (08/09/2014 2:50 PM EDT) CYTOLOGY-DOWEL MAKER CYTOLOGY GYNECOLOGICAL REPORT Name: RADHA CARVER EPI#: [id number] Case #: [id number] Procedure\Addenda HPV High Risk Date Ordered: 08/13/2014 Status: Signed Out Date Complete: 08/17/2014 By: Jacqueline MORRISON(ASCP) Date Reported: 08/17/2014 Interpretation NEGATIVE (Reference Range: Negative) The Cervista HPV HR test is an in vitro test for the qualitative detection of DNA from 14 high-risk Human Papillomavirus (HPV) types (16, 18, 31, 33, 35, 39, 45, 51, 52, 56, 58, 59, 66, and 68) in cervical specimens. The Cervista HPV HR test is indicated: 1) To screen patients with atypical squamous cells of undetermined significance (ASC-US) cervical cytology results to determine the need for referral to colposcopy. 2) In women 30 years and older the test can be used with cervical cytology to adjunctively screen to assess the presence or absence of high-risk HPV types. The Cervista HPV HR test is not intended for use as a screening device for women under age 30 with normal cytology. Results should be used in conjunction with clinical information and assessment of cytology and other factors according to appropriate professional guidelines. False negative results may be related to early low level infections or contamination with high concentration of contraceptive jelly and/or anti-fungal creams. HPV testing performed at [facility], [address] [place] [id number]. Final Cytologic Diagnosis A. Thinprep Cervical/Endocervic al with HPV screen and 16/18 Genotyping if Indicated: Adequacy: Satisfactory for evaluation, endocervical transformation zone component present. Interpretation: Negative for intraepithelial lesion or malignancy. Fungal organisms morphologically consistent with Maddie spp. This specimen has been analyzed by the ThinPrep Imaging System ([employer] an automated imaging and review system, which assists the rug clipper and/or pathologist in evaluation of cells on Thinprep Pap tests. TAMIKO Fenton (ASCP) Electronically Signed Out By Sherry Whitehead Source of Specimen(s) A: Thinprep Cervical/Endocervic al with HPV screen and 16/18 Genotyping if Indicated Clinical History Menstrual History: Not stated Signed out at [facility], [address] [place], [place] [id number] [facility] Non-Formatted Report [facility] 08/09/2014 2:50 PM EDT 08/10/2014 9:41 AM EDT Comment:THINPREP CERVICAL/EN DOCERVICAL WITH HPV SCREEN AND 16/18 GENOTYPING IF INDICATED Fadumo Castellanos CNP PATHOLOGY/CYTOLOGY ORDERABLES Ed ited Result - Final [facility] [address] [place] [id number] from Last 3 Months or Most Recently Relevant to Health Maintenance Care Teams Railway Traction Line Worker Relationship Specialty Start Date End Date Sherry Hurley MD PCP - General 01/19/09
--- OUTSIDE RECORDS SUMMARY | 2024-11-28 14:55 | XMS_ITS | Referral Summary ---
Author Organization [facility] Address [address] 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 Author Blood Pressure < 140/90 Blood Pressure 118/80(2014 5:20 PM EDT) Edward Lakhani MD LDL, CALCULATED < 100 Result Component 134( 2 10:25 AM EDT) Edward Lakhani MD CREATININE < 1.3 Result Component .77( 4 7:19 PM EDT) Edward Lakhani MD Exercising Regularly Self-Managemen t Edward Lakhani MD Patient has no barriers to completing goals Self-Managemen t Edward Lakhani MD Patient increasing knowledge of chronic disease(s) Self-Managemen t Edward Lakhani MD Tobacco cessation (or no tobacco) Self-Managemen t Edward Lakhani MD Patient working to improve diet Self-Managemen t Edward Lakhani MD Patient is monitoring Blood Pressure weekly Self-Managemen t Edward Lakhani MD Procedures Procedure Name Priority Date/Time Associated Diagnosis Comments CYTOLOGY EXTERMINATOR HELPER Routine 08/09/2014 2:50 PM EDT Routine gynecological examination from Last 3 Months or Most Recently Relevant to Health Maintenance Results * CYTOLOGY EXTERMINATOR HELPER (08/09/2014 2:50 PM EDT) CYTOLOGY-EXTERMINATOR HELPER CYTOLOGY GYNECOLOGICAL REPORT Name: RADHA CARVER EPI#: [id number] Case #: [id number] Procedure\Addenda HPV High Risk Date Ordered: 08/13/2014 [...] and/or anti-fungal creams. HPV testing performed at [address] [id number]. Final Cytologic Diagnosis A. Thinprep Cervical/Endocervic al with HPV screen and 16/18 Genotyping if Indicated: Adequacy: Satisfactory for evaluation, endocervical transformation zone component present. Interpretation: Negative for intraepithelial lesion or malignancy. Fungal organisms morphologically consistent with Maddie spp. This specimen has been analyzed by the ThinPrep Imaging System ([employer] an automated imaging and review system, which assists the senior product designer and/or pathologist in evaluation of cells on Thinprep Pap tests. TAMIKO Fenton (ASCP) Electronically Signed Out By Sherry Whitehead Source of Specimen(s) A: Thinprep Cervical/Endocervic al with HPV screen and 16/18 Genotyping if Indicated Clinical History Menstrual History: Not stated Signed out at [facility], [address] [place] [id number] [facility] Non-Formatted Report [facility] 08/09/2014 2:50 PM EDT 08/10/2014 9:41 AM EDT Comment:THINPREP CERVICAL/EN DOCERVICAL WITH HPV SCREEN AND 16/18 GENOTYPING IF INDICATED Fadumo Castellanos CNP PATHOLOGY/CYTOLOGY ORDERABLES Ed ited Result - Final [facility] [address] [place] [phone] from Last 3 Months or Most Recently Relevant to Health Maintenance Care Teams Mobile Home Installer Relationship Specialty Start Date End Date Sherry Hurley MD PCP - General 01/19/09
[2024-11-28 15:06] LABS: 25-OH Vitamin D, Total 28.2 ng/mL (30-100)
[2024-11-28 15:10] LABS: Thyroid Stimulating Hormone 1.82 uIU/mL (0.465-4.68)
[2024-11-28 15:29] LABS: Vitamin B12 362 pg/mL (239-931)
[2024-11-30 09:43] LABS: Insulin Level Total 9.3 uIU/mL (2.6-24.9)
[2024-11-30 13:13] LABS: Triiodothyronine (T3) Free 2.6 pg/mL (2.0-4.4)
[2024-12-01 13:12] LABS: Cortisol,AM 5.0 ug/dL (6.2-19.4)
== END 2024-11-28 23:59 | disposition home or self-care (01) ==
LOC: LAB.DROPOF 14:52
PROVIDERS: PCP Nurse Practitioner Family; Visit Provider Nurse Practitioner Family
DX: E55.9 Vitamin D deficiency, unspecified (principal); E66.9 Obesity, unspecified; I10 Essential (primary) hypertension; E53.8 Deficiency of other specified B group vitamins; F39 Unspecified mood [affective] disorder; R73.03 Prediabetes
CPT/HCPCS: 36415; 80053; 80061; 82306; 82533; 82607; 83525; 83735; 84207; 84425; 84443; 84481; 84630; 84681